=== PATIENT | female | born 1980 | race African-American/Black ===

== ENCOUNTER 2020-02-03 17:01 | Emergency (ER) | payer MEDICAID ==
[~2020-02-03] VITALS: Ht 160 cm; Wt 68.0 kg
[~2020-02-03 17:01] MED LIST: OFLOXACIN5 ML OT
--- NOTE | 2020-02-03 17:12 | NUR ---
ED Nurse Note: pt presents to ED c/o L middle finger pain and swelling for 3 days. pt rates the px an 8/10, there is decreased range of motion of affected finger. pt does not know how she hurt the finger but it appears to be swollen
[2020-02-03 17:17] VITALS: BP 145/67
[2020-02-03] MEDS ORDERED: Lidocaine 2% MPF 5ml Vial INJ ONE (17:30)
--- NOTE | 2020-02-03 18:23 | Emergency Room Report ---
History of Present Illness General Chief Complaint: Upper Extremity Injury Source: Patient Present Illness HPI 39 YO female presents to the ED c/o 10 in severity pain erythema and swelling to the left middle finger x 3 days. Denies fevers or chills. She reports she is right hand dominant. She denies notable trauma or fall. She reports she sometimes bites her nails/cuticles. PT. reports symptoms initially began along the cuticle but spread to the tip of the finger. She reports some tenderness to the finger pad. She reports she is up to date with tetanus. She denies having any allergies to antibiotics/meds. 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: No Patient History Past Medical History: see triage record Past Surgical History: none Pertinent Family History: none Last Menstrual Period: 12/31/2019 Now: No Reviewed Nursing Documentation: PMH: Agreed; PSxH: Agreed Nursing Documentation-PMH Past Medical History: No Stated History Review of Systems All Other Systems: negative except mentioned in HPI Physical Exam Vital Signs Date Time Temp Pulse Resp B/P (MAP) Pulse Ox O2 Delivery O2 Flow Rate FiO2 02/03/20 17:06 98.2 87 18 145/67 (93) 98 Room Air Sp02 EP Interpretation: reviewed, normal General Appearance: no apparent distress, alert, GCS 15, non-toxic Head: normocephalic, atraumatic Eyes: bilateral eye normal inspection, bilateral eye PERRL ENT: hearing grossly normal, normal voice Neck: full range of motion Respiratory: chest non-tender, lungs clear, normal breath sounds, speaking full sentences Cardiovascular #1: regular rate, rhythm, no edema Gastrointestinal: normal bowel sounds, non tender, soft Rectal: deferred Genitourinary: normal inspection Musculoskeletal: back normal, normal range of motion, gait/station normal, non- tender Neurologic: alert, motor strength/tone normal, oriented x3, sensory intact, responsive, speech normal Psychiatric: judgement/insight normal Lymphatic: no adenopathy Procedures Incision and Drainage Incision and Drainage : Consent: Verbal Site: LMF Blade Size: 11 I & D Procedure: betadine prep, sterile drapes applied, sterile dressing applied Wound Location: upper extremity - LMF Wound's Depth, Shape: linear Wound Length (cm): 1 Wound Explored: contaminated - Purulent d/c and some blood expressed. Anesthesia: 1% Lidocaine Volume Anesthetic (ccs): 5 Splint Applied?: Yes Type of Splint Applied: finger splint Sling Applied?: Yes Patient Tolerated: Well Complications: None Medical Decision Making PA Attestation Dr. Petit is my supervising Physician whom patient management has been discussed with. Diagnostic Impression: Primary Impression: Felon of finger of left hand ER Course 39 YO female presents to the ED c/o 10/20 in severity pain erythema and swelling to the left middle finger x 3 days. Denies fevers or chills. She reports she is right hand dominant. She denies notable trauma or fall. She reports she so metimes bites her nails/cuticles. PT. reports symptoms initially began along the cuticle but spread to the tip of the finger. She reports some tenderness to the finger pad. She reports she is up to date with tetanus. She denies having any allergies to antibiotics/meds. Ddx considered but are not limited to cellulitis, paronychia, eponychia, Felon, ingrown nail, fracture, d/L, gout Vital signs: are WNL, pt. is afebrile H&PE are most consistent with left middle finger paronychia that has progressed to felon (swelling and pain of the finger pad) ORDERS: none required at this time, the diagnosis is clinical ED INTERVENTIONS: - verbal consent was received . - lesion was cleaned with Betadine prep. - Small incision using an no 11 Blade scalpel was used to detach the cuticle from the nail bed in order to drain the paronychia along the lateral cuticle line . No. 11 blade was also used to make a 0.5cm incision to the lateral aspect of the finger pad. pt. tolerated well without complication. - sterile band-aid was then applied afterward. - Finger Splint applied to the left middle finger by community development technician. Pt. remains neurovascularly intact. - Dose of oral Abx given here in ED. DISCHARGE: At this time pt. is stable for d/c to home. Will provide printed patient care instructions, and any necessary prescriptions. Care plan and follow up instructions have been discussed with the patient prior to discharge. Last Vital Signs Date Time Temp Pulse Resp B/P (MAP) Pulse Ox O2 Delivery O2 Flow Rate FiO2 02/03/20 17:17 98.2 85 18 145/67 98 Room Air Disposition: HOME, SELF-CARE Condition: Stable Scripts Mupirocin* (MUPIROCIN*) 22 Gm Oint...g. 1 APPLIC TOPIC THREE TIMES A DAY, #22 GM Prov: Rebecca Fletcher 02/03/20 Acetaminophen With Codeine (T#3) (TYLENOL #3 TAB*) Y Tab 1 TAB ORAL Q6H PRN for For Pain, #12 TAB Prov: Rebecca Fletcher 02/03/20 Amoxicillin/Potassium Clav 875-125* (AUGMENTIN 875-125 TABLET*) 1 Each Tablet 1 TAB ORAL TWICE A DAY for 7 Days, #14 TAB Prov: Rebecca Fletcher 02/03/20 Referrals: NON PHYSICIAN (PCP) Patient Instructions: Paronychia Additional Instructions: Take medications as directed. 48 HOUR WOUND CHECK RETURN TO ED or with YOUR PMD Follow up with a Primary Care Provider in 3-5 days, even if your symptoms have resolved. --Please review list of primary care clinics, if you do not already have a primary care provider Return sooner to ED if new symptoms occur, or current symptoms become worse. Do not drink alcohol, drive, or operate heavy machinery while taking Tylenol # 3 as this may cause drowsiness. - Please note that this Emergency Department Report was dictated using 28msecsheet tester technology software, occasionally this can lead to erroneous entry secondary to interpretation by the dictation equipment. Rebecca Fletcher Feb 03, 2020 18:23
[2020-02-03] MEDS ORDERED: MUPIROCIN22 GM TOPIC (18:25)
[2020-02-03] MEDS ORDERED: ACETAMINOPHEN-1 EAC1 ORAL (18:25)
[2020-02-03] MEDS ORDERED: AUGMENTIN 875-1 EAC1 ORAL (18:25)
[2020-02-03] MEDS ORDERED: Augmentin 875mg Tab ORAL ONE (18:30)
[2020-02-03 18:38] VITALS: BP 145/67
--- NOTE | 2020-02-03 18:38 | NUR ---
ER DISCHARGE NOTE: Patient is cleared to be discharged per ERMD, pt is aox4, on room air, with stable vital signs. pt was given dc instructions, pt was able to verbalize understanding, pt id band removed without complications. pt is able to ambulate with steady gait. pt took all belongings.
== END 2020-02-03 18:38 | disposition home or self-care (01) ==
LOC: EMR 17:25
DX: M25.542 Pain in joints of left hand (principal); L03.012 Cellulitis of left finger; Z88.8 Allergy status to other drugs, medicaments and biological substances
CPT/HCPCS: 10060; Z7502; 99283